=== PATIENT | female | born 1970 | race Caucasian/White ===

== ENCOUNTER 2017-09-17 07:27 | Day surgery (SDC) | payer BC ==
[~2017-09-17] VITALS: Ht 162.6 cm; Wt 79.8 kg
[~2017-09-17 07:27] MED LIST: ASCORBIC ACID500 M3 PO; BLACK ELDERBER1 EACH PO; CLARITIN,ALAVAR10 MG PO; REFRESH LI300 DROP/1 BOTH EYES; REFRESH PLUS1 EACH BOTH EYES; VITAMIN D31000 UNI2 PO
[2017-09-17 08:27] VITALS: BP 116/68
[2017-09-17] MEDS ORDERED: ENDOCET 5-3251 EACH PO (08:53)
[2017-09-17] MEDS ORDERED: IBUPROFEN800 MG PO (08:53)
[2017-09-17 10:45] VITALS: BP 139/80
[2017-09-17 12:05] VITALS: BP 114/78
== END 2017-09-17 12:43 | disposition home or self-care (01) ==
LOC: SDC 07:27
DX: N92.0 Excessive and frequent menstruation with regular cycle (principal)
CPT/HCPCS: 88305; J0131; J0330; J1100; J1170; J2250; J2405; Q0175